=== PATIENT | male | born 1960 | race Caucasian/White ===

== ENCOUNTER 2025-08-30 16:54 | Inpatient (IN) | payer OTHER, SELFPAY ==
[2025-08-30 11:08] VITALS: BP 173/97
[2025-08-30 11:43] LABS: ALT (SGPT) 42 U/L (0-50); AST (SGOT) 41 U/L (17-59); Albumin 5.3 g/dl (3.5-5.0); Alkaline Phosphatase 74 U/L (38-126); Blood Urea Nitrogen 14 mg/dl (9-20); Calcium 9.8 mg/dl (8.4-10.2); Carbon Dioxide 26 mmol/L (22-30); Chloride 100 mmol/L (98-107); Glucose 91 mg/dl (70-99); Hematocrit 43.3 % (39.0-52.0); Hemoglobin 15.1 g/dL (13.0-18.0); Mean Corp Hgb Conc. 34.9 g/dL (33.0-37.0); Mean Corpuscular Volume 88.5 fL (80.0-94.0); Platelet Count 122 10^3/uL (130-400); Potassium 4.4 mmol/L (3.5-5.1); Red Cell Dist. Width 11.9 % (11.5-14.5); Sodium 133 mmol/L (135-145); Total Protein 7.7 g/dl (6.3-8.2); eGFR > 60.00
[2025-08-30 11:56] LABS: INR 1.04; PT 14.1 Sec (11.4-14.6)
[2025-08-30 12:05] LABS: Absolute Neutrophils -Man Diff 1.5 10^3/uL (1.4-6.5); Platelets Checked Yes
--- NOTE | 2025-08-30 12:05 | ED.CVA ---
History of Present Illness
<DAVID Roe - Last Filed: 08/30/25 19:17>
General
Chief Complaint: CVA/TIA Symptoms
Source: patient
Exam Limitations: none
Time Seen by Provider: 08/30/25 12:04
Nursing documentation reviewed up to this point in time: agreed with
Onset of Stroke Symptoms
Onset of symptoms known: No
Time pt last seen normal is known: No
History of Present Illness
History of Present Illness:
Patient is a 65-year-old male with history of hypertension hyperlipidemia cardiac stents TIA presents to the ER for evaluation. Patient reports yesterday at 6:30 PM he was sitting and' felt an aura, felt slight confusion' and then developed a
headache diplopia and felt weakness in both his arms. He thinks it lasted for about an hour. He was able to drive home and for little confused when he was driving home but symptoms did resolve. He has a history of CVA in the past.
Past History
<DAVID Roe - Last Filed: 08/30/25 19:17>
Past History
ED Past Medical History: HTN
ED Past Surgical History: Cardiac (Cardiac stents )
Social History
Tobacco: Non-smoker
Employment: Employed
Phy Exam
<DAVID Roe - Last Filed: 08/30/25 19:17>
General Physical Exam
General Presentation: no apparent distress
General age: appears stated age and appears older than age
General Skin: warm
General Habitus: normal
General Mental: alert
General Hydration: appears well hydrated
ENT Exam
ENT Exam: EOMI and neck supple
Eye Exam
Eye Exam: PERRL and EOMI
Eye Exam General: PERRL: bilateral and EOM intact: bilateral
Pupil Exam: Bilateral: round and reactive
Cardiovascular Exam
Cardiovascular Exam: regular rate/rhythm, no murmur and normal peripheral pulses
Pulmonary Exam
Pulmonary Exam: lungs clear and no respiratory distress
Neurological Exam
Neurological Exam: alert and oriented x3
NIH Stroke Score
Level of Consciousness: 0 - Alert
LOC questions: 0-Answers both correctly
LOC Commands: 0-Performs both correctly
Best Gaze: 0-Normal
Visual Dubose: 0=Normal, no visual loss
Facial palsy: 0=Normal, symmetrical
Motor - Right Arm: 0=No drift 10 seconds
Motor - Left Arm: 0=No drift 10 seconds
Motor - Right Le-No drift 5 seconds
Motor - Left Le-No drift 5 seconds
Limb Ataxia: 0-Absent
Sensation: 0-Normal
Best Language: 0-No aphasia
Dysarthria: 0-Normal
Extinction and Inattention: 0-No abnormality
Total Score:: 0
Marco A Coma Scale
Eye Opening: Spontaneous
Verbal Response: Oriented
Motor Response: Obeys Commands
GCS Total Score: 15
Cerebellar
Cerebellar Function: normal finger to nose
Musculoskeletal Exam
Musculoskeletal Exam: full ROM
Skin Exam
Skin Exam: normal color and warm/dry
Psychiatric Exam
Psychiatric Exam: normal mood/affect
Course
<DAVID Roe - Last Filed: 08/30/25 19:17>
Orders/Labs/Results
Orders:
Orders
08/30/25 11:17
Complete Blood Count/With Diff Urgent
Comprehensive Metabolic Panel Urgent
Manual Differential Urgent
PT/INR [Prothrombin Time] Urgent
08/30/25 12:16
Electrocardiogram (*1) Urgent
Reason for Study: Chest Pain
CT Head W/o Iv Contrast Urgent
Comment:
Reason For Exam: headache /had upper extremity weakness
Cardiac Monitoring- Treatment ONCE
EKG- Treatment ONCE
08/30/25 13:34
CT Head & Neck Angio W/wo IV Urgent
Comment:
Reason For Exam: TIA s/s/
08/30/25 16:44
Admit/Transfer Patient As Directed
Co-Sign Provider:
Level of Care: Inpatient admission
Assign to:: Telemetry
Physician / Group: Dhara
Diagnosis: CVA/TIA
Reason for Telemetry: CVA/TIA
Date to Stop Telemetry: 09/02/25
Time to Stop Telemetry: 11:00
Reason for Hospitalization: Above
Expected length of stay greater than two midnights?: Yes
ELOS- Estimated Length of Stay in days: 2
I certify the patient meets the requirements for IP care: Yes
PRN Pain Medication Management As Directed
May give lesser potent ordered pain med per pt: Yes
preference::
Protocol:: Medication orders for pain may be administered in a
manner that supports deferring to patient preference
when the pt is:
- Requesting an ordered lesser potent pain medication.
Least to most potent pain medications are defined
as: acetaminophen < NSAID < tramadol < opioids
(morphine, oxycodone, hydromorphone).
- Requesting a lesser dose of the same medication IF
ORDERED.
- Requesting a less intrusive route of administration
if both routes are prescribed by the provider (PO <
IV).
08/30/25 16:46
Code Status As Directed
Resuscitation Status: Full Code
08/30/25 18:16
Echo 2D MMode Color/Doppler Routine
Reason for Study: CVA
Case Management Consult ONCE
Case Management Consult: Discharge Planning
Comment: stroke/tia
DIETARY IP CONSULT Routine
Reason for Consult: stroke/TIA
NEUROLOGY CONSULT Urgent
Consulting Provider: Encarnacion,Adam
Was physician already notified: Yes
Commercial Loan Administrator Urgent
MR Brain Without Contrast Routine
Comment:
Reason For Exam: stroke/TIA
Recent pill cam endoscopy?: No
NIH Stroke Scale As Directed
Directions: Per protocol
Comment: every shift and with any change in condition or mental status
Ot Eval And Treat Routine
Pt Eval And Treat Routine
Activity Level: As Tolerated
Speech Therapy Eval & Treat Routine
DX Deep Vein Thrombosis Video Routine
08/30/25 19:00
Aspirin Chewable [Low Strength Aspirin] 81 mg PO DAILY
Enoxaparin Sodium [Lovenox] 40 mg SC QPM
Ezetimibe [Zetia] 10 mg PO Q48H
Rosuvastatin Calcium [Crestor] 40 mg PO QPM
08/30/25 20:00
omega-3 acid ethyl esters [Lovaza] See Dose Instructions PO BID
08/31/25 08:00
Amlodipine [Norvasc] 10 mg PO DAILY
Clopidogrel Bisulfate [Plavix] 75 mg PO DAILY
Thyroid [Wellington Thyroid] 60 mg PO DAILY
Zinc 50mg (Zinc Sulfate 220mg) [Zinc] 50 mg PO DAILY
azilsartan medoxomil [Edarbi] See Dose Instructions PO DAILY
09/02/25 11:00
DC Protocol for Telemetry ONCE
Abnormal Lab Results
08/30/25
11:17
WBC 3.5 L 10^3/uL
(4.8-10.8)
Plt Count 122 L 10^3/uL
(130-400)
Segmented Neutrophils 41 L %
(42-75)
Sodium 133 L mmol/L
(135-145)
Total Bilirubin 1.6 H mg/dl
(0.2-1.3)
Albumin 5.3 H g/dl
(3.5-5.0)
08/30/25 11:17
08/30/25 11:17
Vital Signs
Initial and Last Documented VS:
Initial Vital Signs
Temp Pulse Resp BP Pulse Ox
98.7 F 61 16 173/97 98
08/30/25 11:08 08/30/25 11:08 08/30/25 11:08 08/30/25 11:08 08/30/25 11:08
Last Documented Vital Signs
Temp Pulse Resp BP Pulse Ox
98.5 F 58 16 141/85 100
08/30/25 18:19 08/30/25 18:19 08/30/25 18:19 08/30/25 18:19 08/30/25 18:19
Dealer Sales Manager consulted with Physician
Dealer Sales Manager consulted with physician?: Yes
Name of Physician Consulted: Elsa
<Italia Arreola, DO - Last Filed: 08/30/25 13:59>
Orders/Labs/Results
Orders:
Orders
08/30/25 11:17
Complete Blood Count/With Diff Urgent
Comprehensive Metabolic Panel Urgent
Manual Differential Urgent
PT/INR [Prothrombin Time] Urgent
08/30/25 12:16
Electrocardiogram (*1) Urgent
Reason for Study: Chest Pain
CT Head W/o Iv Contrast Urgent
Comment:
Reason For Exam: headache /had upper extremity weakness
Cardiac Monitoring- Treatment ONCE
EKG- Treatment ONCE
08/30/25 13:34
CT Head & Neck Angio W/wo IV Urgent
Comment:
Reason For Exam: TIA s/s/
08/30/25 16:44
Admit/Transfer Patient As Directed
Co-Sign Provider:
Level of Care: Inpatient admission
Assign to:: Telemetry
Physician / Group: Dhara
Diagnosis: CVA/TIA
Reason for Telemetry: CVA/TIA
Date to Stop Telemetry: 09/02/25
Time to Stop Telemetry: 11:00
Reason for Hospitalization: Above
Expected length of stay greater than two midnights?: Yes
ELOS- Estimated Length of Stay in days: 2
I certify the patient meets the requirements for IP care: Yes
PRN Pain Medication Management As Directed
May give lesser potent ordered pain med per pt: Yes
preference::
Protocol:: Medication orders for pain may be administered in a
manner that supports deferring to patient preference
when the pt is:
- Requesting an ordered lesser potent pain medication.
Least to most potent pain medications are defined
as: acetaminophen < NSAID < tramadol < opioids
(morphine, oxycodone, hydromorphone).
- Requesting a lesser dose of the same medication IF
ORDERED.
- Requesting a less intrusive route of administration
if both routes are prescribed by the provider (PO <
IV).
08/30/25 16:46
Code Status As Directed
Resuscitation Status: Full Code
08/30/25 18:16
Echo 2D MMode Color/Doppler Routine
Reason for Study: CVA
Case Management Consult ONCE
Case Management Consult: Discharge Planning
Comment: stroke/tia
DIETARY IP CONSULT Routine
Reason for Consult: stroke/TIA
NEUROLOGY CONSULT Urgent
Consulting Provider: Adam Encarnacion
Was physician already notified: Yes
Commercial Loan Administrator Urgent
MR Brain Without Contrast Routine
Comment:
Reason For Exam: stroke/TIA
Recent pill cam endoscopy?: No
NIH Stroke Scale As Directed
Directions: Per protocol
Comment: every shift and with any change in condition or mental status
Ot Eval And Treat Routine
Pt Eval And Treat Routine
Activity Level: As Tolerated
Speech Therapy Eval & Treat Routine
DX Deep Vein Thrombosis Video Routine
08/30/25 19:00
Aspirin Chewable [Low Strength Aspirin] 81 mg PO DAILY
Enoxaparin Sodium [Lovenox] 40 mg SC QPM
Ezetimibe [Zetia] 10 mg PO Q48H
Rosuvastatin Calcium [Crestor] 40 mg PO QPM
08/30/25 20:00
omega-3 acid ethyl esters [Lovaza] See Dose Instructions PO BID
08/31/25 08:00
Amlodipine [Norvasc] 10 mg PO DAILY
Clopidogrel Bisulfate [Plavix] 75 mg PO DAILY
Thyroid [Wellington Thyroid] 60 mg PO DAILY
Zinc 50mg (Zinc Sulfate 220mg) [Zinc] 50 mg PO DAILY
azilsartan medoxomil [Edarbi] See Dose Instructions PO DAILY
09/02/25 11:00
DC Protocol for Telemetry ONCE
Abnormal Lab Results
08/30/25
11:17
WBC 3.5 L 10^3/uL
(4.8-10.8)
Plt Count 122 L 10^3/uL
(130-400)
Segmented Neutrophils 41 L %
(42-75)
Sodium 133 L mmol/L
(135-145)
Total Bilirubin 1.6 H mg/dl
(0.2-1.3)
Albumin 5.3 H g/dl
(3.5-5.0)
08/30/25 11:17
08/30/25 11:17
Vital Signs
Initial and Last Documented VS:
Initial Vital Signs
Temp Pulse Resp BP Pulse Ox
98.7 F 61 16 173/97 98
08/30/25 11:08 08/30/25 11:08 08/30/25 11:08 08/30/25 11:08 08/30/25 11:08
Last Documented Vital Signs
Temp Pulse Resp BP Pulse Ox
98.5 F 58 16 141/85 100
08/30/25 18:19 08/30/25 18:19 08/30/25 18:19 08/30/25 18:19 08/30/25 18:19
<DAVID Roe - Last Filed: 08/30/25 19:17>
MDM/Problems Addressed
Differential Diagnosis Includes:
Not limited to TIA, stroke
MDM/Problems Addressed:
As documented patient is a 65-year-old male with previous history of stroke cardiac stents hypertension hyperlipidemia presents to the ER for evaluation. Yesterday patient had diplopia headaches and felt bilateral upper extremity weakness. He is
asymptomatic today however presented to the ER for evaluation. Patient last admission for stroke was in January 2023 at that time his MRI did show a 5 mm acute nonhemorrhagic infarct in the medial aspect the left temporal lobe. He does take Plavix.
He is NIH score is currently 0. Case reviewed with Dr. Arreola as well as neuro DR Encarnacion. CTA head and neck ordered. will need MRI/echo. will adm for continue monitoring and evaluation and additional testing as patient has very high risk factors.
Chronic conditions affecting care:
Stroke, CAD stents
<DAVID Roe - Last Filed: 08/30/25 19:17>
*Radiology
Radiology exam reviewed: radiology read reviewed
*Pulse Oximetry
SaO2: 98
Oxygen Mode of Delivery: Room air
Patient hypoxic: no
*EKG
Interpreted by ED Provider?: Yes
Heart Rate: 52
Rate: bradycardiac
Rhythm: sinus
Ischemia: no ischemia
*Critical Care Note
Total Time (30-74mins, 75-104mins- exclusive of procedures): Not Applicable
ED Attending Note
<DAVID Roe - Last Filed: 08/30/25 19:17>
-
Portions of this chart may have been created with voice recognition software.� Occasional wrong word or��sound alike� substitutions may have occurred due to the inherent limitations of voice recognition software.
<Italia Davala, DO - Last Filed: 08/30/25 13:59>
ED Attending Note
Patient seen and examined by attending physician: Yes
I performed the substantive portion of visit, reviewed & personally made and approve the management plan that is documented in note by myself or DON.: Yes
I performed a history and physical exam of patient and discussed management with resident, I reviewed resident's note and agree with documented findings and plan of care.: Yes
ED Attending Note:
65-year-old male with prior history of TIA and CVA on Plavix presenting to the emergency department for concern of strokelike symptoms. Patient reports yesterday he had an episode of headache and double vision. Symptoms lasted about an hour to an
hour and a half. Symptoms have since improved, however still notes some residual headache. He feels globally weak. Vision has corrected. He did take aspirin today. Denies any present chest pain, difficulty breathing, abdominal pain. Vital
signs on arrival significant for mild hypertension.
On exam, patient is resting comfortably, no acute distress or discomfort. Patient initially seen and assessed by nurse practitioner with stroke workup initiated. CT brain obtained prior to my assessment, unremarkable. On my assessed, no present
focal neurologic deficits intact strength and sensation bilaterally. Patient awake, alert, oriented. Symptoms appear more consistent with TIA versus CVA. In discussion with neurology, recommending further workup including a CT angio, MRI, echo.
For this reason we will admit to the hospital for continued stroke workup. Patient agreeable to plan. Patient hemodynamically stable at this time.
Discharge Plan
Departure
Patient Disposition: Admit
Date of Disposition: 08/30/25
Time of Disposition: 13:46
Admit to: Med/Surg
Admit to doctor: hospitalist
Presentation/result/management discussed w/ accepting MD/DO: Hospitalist
Patient with high blood pressure during this ER visit?: No
Covid-19: Not Applicable
Discharge Problem:
TIA (transient ischemic attack)
Interventions
Interventions:
*Risk Screen - Suicide Last Done: 08/30/25 11:08
*General Assessment Last Done: 08/30/25 11:08
*Neglect/Abuse Screening Last Done: 08/30/25 11:08
*ED- Fall Risk Assessment Last Done: 08/30/25 11:08
*ED COVID-19 Vaccine History Last Done: 08/30/25 11:08
*ED Influenza Vaccine History Last Done: 08/30/25 11:08
*Nursing Disposition Last Done: 08/30/25 17:29
ED- Pulmonary Assessment Last Done: 08/30/25 13:45
ED- Neurological Assessment Last Done: 08/30/25 13:45
ED- Cardiac Assessment Last Done: 08/30/25 13:45
ED Swallowing Screen Last Done: 08/30/25 13:45
Discharge Date and Time
Discharge Date/Time: 08/30/25 18:05
[2025-08-30 12:06] LABS: Normal RBC Morphology Yes; Total Cells Counted 100
[2025-08-30 15:49] VITALS: BP 135/74
[2025-08-30 16:00] VITALS: BP 138/83
--- NOTE | 2025-08-30 16:52 | HPS.HSE ---
Family Physician
-
Family Physician: Edmond Jones
Chief Complaint
-
Episode of diplopia and generalized weakness.
History of Present Illness
Patient is a 65 years old male with history of CAD and PCI, prior CVA, dyslipidemia and hypertension who presents to the emergency room after self-limited episode of diplopia and bilateral upper extremity weakness. Patient describes being under
stress over the last few days with onset of diplopia, slight confusion, headache and weakness in both arms. All symptoms lasted for about an hour. Later that he was able to drive home from work with complete resolution of symptoms. Patient
recalls prior history of CVA at that time symptoms were more pronounced and and long-lasting. He denies any chest pain, palpitations, syncope or episodes of unconsciousness. He has no history of seizures or documented migraines.
On presentation to the emergency room patient is afebrile, nontoxic-appearing, hemodynamically stable.
Neurologic exam in the ED showed no focal symptoms.
Additional reassuring CT scan of the head showed no acute abnormalities. CTA of the head and neck showed no vascular occlusion or dissection.
Medical History
Past Medical History
Past Medical History: Reports CAD, Hypercholesterolemia and Hypothyroidism; Denies Arrhythmia or CHF
Past Surgical History: Reports None
Social History
Tobacco: Non-smoker
Alcohol: None
Drug: None
Personal:
Living: With Family
Employment: Employed
Family History
Family History: Not pertinent
Allergies / Home Medications
Allergies reflects when Allergies were last updated in [facility].
Home Medications with original date entered in [facility]
Allergy/Medication List:
Allergies
Allergy/AdvReac Type Severity Reaction Status Date / Time
No Known Allergies Allergy Verified 08/30/25 11:11
Home Medications
amlodipine 10 mg tablet (Norvasc) 10 mg PO DAILY Blood Pressure 08/30/25
ascorbic acid (vitamin C) 500 mg tablet (Vitamin C) 500 mg PO DAILY Supplement 08/30/25
aspirin 81 mg tablet,delayed release 324 mg PO DAILYPRN PRN mild pain 08/30/25
azilsartan medoxomil 80 mg tablet (Edarbi) 80 mg PO DAILY 08/30/25
clopidogrel 75 mg tablet 75 mg PO DAILY Blood Clot Prevention/Tx 08/30/25
ezetimibe 10 mg tablet (Zetia) 10 mg PO Q48H High Cholesterol 08/30/25
omega-3 acid ethyl esters 1 gram capsule (Lovaza) 2 cap PO BID Supplement 08/30/25
rosuvastatin 40 mg tablet (Crestor) 40 mg PO QPM High Cholesterol 08/30/25
thyroid 60 mg tablet 60 mg PO DAILY Thyroid 08/30/25
zinc sulfate 50 mg zinc (220 mg) capsule 50 mg PO DAILY Supplement 08/30/25
Review of Systems
-
A 12 point ROS was completed and negative except as noted: Yes
Respiratory: Reports No Symptoms
Cardiac: Reports No Symptoms
Abdomen/GI: Reports No Symptoms
: Reports No Symptoms
Neurological: Reports See HPI
Physical Exam
Vital Signs
Vital Signs
Temp Pulse Resp BP Pulse Ox
98.7 F 61 16 135/74 100
08/30/25 11:08 08/30/25 11:08 08/30/25 11:08 08/30/25 15:49 08/30/25 15:51
Physical Exam
General: Well Developed, Well Nourished and No Apparent Distress
HEENT: NormoCephalic, Moist mucous membranes and Atraumatic
Respiratory: Clear
Cardiac: S1/S2 and Regular Rhythm; No Murmur or Rub
GI: Soft, Non Tender, Non Distended and Normal Bowel Sounds; No Organomegaly
Rectal: Deferred by Provider
Musculoskeletal: No Clubbing, No Cyanosis and No Edema
Skin: No Rash
Neuro: Nonfocal/grossly intact
Laboratory Results
-
08/30/25 11:17
08/30/25 11:17
Laboratory Results
PT 14.1 Sec (11.4-14.6) 08/30/25 11:17
INR 1.04 08/30/25 11:17
Total Bilirubin 1.6 mg/dl (0.2-1.3) H 08/30/25 11:17
AST 41 U/L (17-59) 08/30/25 11:17
ALT 42 U/L (0-50) 08/30/25 11:17
Alkaline Phosphatase 74 U/L (38-126) 08/30/25 11:17
Impression/Plan
-
IMPRESSION:
Presentation with self-limited episode of diplopia, headache, bilateral upper extremity weakness.
Concern for TIA versus evolving CVA.
Conditions prior to admission:
Left frontal CVA 02/21 at that time MRI findings confirmed 5 mm acute nonhemorrhagic infarct in the medial aspect of the left temporal lobe
CAD with history of PCI double STEPHON to circumflex 2016
Dyslipidemia
Essential hypertension
Hypothyroidism on replacement
Chronic leukopenia
Chronic mild thrombocytopenia
History thiazide induced hyponatremia
PLAN:
Concern for TIA possibly evolving CVA.
Patient with history of ASCVD and prior CVA in 2022.
Transient episode of diplopia, bilateral upper extremity weakness day prior to presentation.
NIH stroke scale 0.
CT head with no acute abnormalities.
CTA head and neck with no vascular occlusion or dissection.
ECG sinus bradycardia at 52 without ischemia.
Admitted for close neurologic monitoring.
Neurology consultation.
Update lipid profile.
MRI of the brain
Echocardiogram
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
Continue DAPT
Continue high potency statin and ezetimibe
Goal normotension
ASCVD/CAD
Essential hypertension
Continue preadmission regimen including Edarbi
Monitor blood pressure trend
Hypothyroid on supplementation.
Update TSH
Chronic leukopenia and mild thrombocytopenia
Follow CBC
Check coagulation profile
Consider hematology evaluation as outpatient
Full code
DVT prophylaxis Lovenox
[2025-08-30 18:19] VITALS: BP 141/85; BMI 27.1
[2025-08-30] MEDS: LOVENOX 40 MG SC (19:42)
[2025-08-30] MEDS: CRESTOR 40 MG PO (19:42)
[2025-08-30] MEDS: LOW STRENGTH ASPIRIN 81 MG PO (19:43)
[2025-08-30] MEDS: ZETIA 10 MG PO (19:43)
[2025-08-30 19:58] VITALS: BP 139/81
[2025-08-30 23:00] VITALS: BP 128/77
[2025-08-31 03:50] VITALS: BP 105/62
[2025-08-31] MEDS: ZINC 50 MG PO (07:12)
[2025-08-31] MEDS: ARMOUR THYROID 60 MG PO (07:12)
[2025-08-31] MEDS: LOW STRENGTH ASPIRIN 81 MG PO (07:12)
[2025-08-31 07:39] LABS: APTT 31.5 Sec (23.4-35.0)
[2025-08-31 07:47] VITALS: BP 125/77
--- NOTE | 2025-08-31 08:22 | CON.NEURO4 ---
Addendum entered and electronically signed by Adam Encarnacion MD 08/31/25 18:46:
I have seen and examined the patient today along with the nurse practitioner Yola Mancera and I agree with her assessment and the management plan. The following is my addendum.
The patient is a 65 years old male who presented to the hospital on 08/30/2025 with report of transient diplopia along with weakness of both arms, that lasted for about an hour that started at around 6:30 PM on 08/30/2025. The patient says that he
has been under a lot of stress over the last few days. The patient says that he has returned back to his baseline at this time.
Neurologic examination.
The patient is alert and oriented x 3,
Speech is clear,
The cranial nerves II to XII grossly intact,
The strength is grossly 5/5 bilaterally in the upper and lower extremities,
The sensations are grossly intact,
The cerebellar examination does not show limb ataxia.
NIHSS = 0
The patient likely had a transient ischemic attack. The CT of the head did not show acute abnormality and the CTA of head and neck did not show large vessel occlusion or arterial dissection. The MRI of the brain did not show acute intracranial
abnormality. The patient was on Plavix at home. Will add aspirin to Plavix, and he will continue with rosuvastatin.
Discussed with Dr. Farzad Jules. The patient will follow-up with neurology in about 3 weeks.
Original Note:
Consultation - Neurology 4
-
CONSULTING PHYSICIAN: Adam Encarnacion MD
REFERRING PHYSICIAN: Hospitalists/Dr. Jules
DICTATED BY: DAVID Mcclain
DATE/TIME OF REQUEST: 08/30/25
DATE/TIME OF CONSULTATION: 08/31/25
Reason for Consultation: Transient diplopia, dizziness
History of Present Illness:
This is a 65-year-old male who has presented to the hospital on 08/30/25 with report of transient diplopia, confusion, dizziness, and headache. Patient was previously evaluated by our Neurology service in 2022 for similar symptoms, MRI brain at
that time demonstrated a small acute left temporal ischemic stroke. He completed 21 days of DAPT and then continued on clopidogrel 75mg daily since.
From previous evaluation by Neurology Dr. Guillen on 03/17/2023:
'63-year-old male presents as a follow-up for an acute ischemic stroke, likely hypertensive in etiology, for which she was treated at [facility] in late January 2023. He also has a history of hypertension, hyperlipidemia, osteoarthritis and
coronary artery disease status post stent placement and migraine with aura. He had blurred vision and diplopia followed by headache mostly on the left side lasting 30 to 45 minutes in duration and then returned to baseline. He also had some
confusion and disorientation which slowly subsided. This all happened around 12:30 PM on the day prior to being seen by neurology. In the past he had a similar event with visual changes followed by headache with neck discomfort. He was found to have
hyponatremia with a sodium of 127 and was altered so neutropenic. He had been started on Benicar for hypertension about 1 month prior. BP was 170/107 initially when he was admitted. Head CT showed no acute findings. MRI of the brain showed a 5 mm
acute nonhemorrhagic infarct in the medial aspect of the left temporal lobe. MRI of the [place] showed anatomic variation in the form of the A1 segment of the LACIE on the left being slightly smaller than the right. origin of the left
PLUM[employer]ING [employer]ATING [employer] was also seen. No significant stenosis was seen intracranially or on the MRA of the neck. He also had an echocardiogram. LV ejection fraction was found to be 68%. The interatrial septum was intact with no shunting. No clear family history of
stroke. He is a non-smoker. 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 He says that he exercises frequently and plays sports as he has done throughout his life. He has been unable to take a beta-herbert in the past as it resulted in bradycardia. He is actively following with
a protection agent and has our renal artery ultrasound scheduled coming up. He has been taking dual antiplatelet therapy in the form of aspirin 81 mg daily and Plavix 75 mg daily since his stroke. He has no clear residual deficits from his stroke. He
has had an increase in his anxiety regarding his health since being discharged. He is also noticed that he is more irritable at work and his blood pressure is more elevated at work than it is at home or when he is on vacation. He has been started on
Zoloft for anxiety and to see if this helps his blood pressure.'
Patient reports that two days ago on 08/29/25 around 1830 he started to feel mildly confused and dizzy, then proceeded to develop diplopia. He took a full dose aspirin and symptoms resolved after about one hour. The following morning (08/30/25) he
reports that he had a headache. CT head and CTA head/neck were obtained on arrival in the ER and were negative for any acute abnormalities. He was outside of the time window/no LVO for TNK/IAT. NIHSS was 0. Blood pressure on arrival was 173/97. He
does note significant stress in the past several weeks. Currently (08/31/25), he reports feeling at his baseline. He denies any headache, dizziness, vision changes, speech/swallowing difficulty, numbness, and focal weakness. He reports that since
the age of 46 about 2-3 times per year he has had episodes of headache associated with diplopia. He was previously told this might be migraine with aura. Since his stroke in 2022, he has not had any diplopia episodes until two days ago.
Past Medical History: Small left temporal ischemic stroke 01/2023, HTN, HLD, CAD, hypothyroidism, chronic leukopenia/mild thrombocytopenia, thiazide induced hyponatremia.
Surgical History: Cardiac stent x2, L knee arthroscopy
Family History: Reviewed and noncontributory.
Social History: Denies tobacco, alcohol, and illicit drug use.
Allergies: No known allergies.
Home Medications: See below.
Review of Symptoms:
Patient denies any fever, headache, chest pain, shortness of breath, GI or symptoms.
�Per the HPI.�All systems are reviewed negative except above.
Physical Exam:
The patient is afebrile, abdomen is nondistended, breathing is unlabored, skin is warm and dry, no edema.
NIH Stroke Scale:
I performed the NIH stroke scale on the patient on 08/31/25 at 1000. The patient scored 0 points on the NIH stroke scale assessment, which were assigned as follows: See below.
Neurologic Examination:
The patient is awake, alert and oriented x 3. He is able to follow commands and answer questions appropriately. There is no aphasia or dysarthria. On cranial nerve assessment, pupils are 3 mm bilateral, round and reactive to light and
accommodation. Visual dubose are full. Extraocular movements are intact. Facial sensations are intact and bilaterally symmetrical, there is no facial asymmetry. Hearing is intact bilaterally to normal conversation volume. Tongue palate and uvula are
midline. Sternocleidomastoid strengths are full bilaterally. Motor strengths are 5/5 bilateral upper and lower extremities on medical research Woden scale. There is no drift or involuntary movement noted. There was no extinction noted on double
simultaneous stimulation. Coordination is intact by finger to nose bilaterally.
Lab Results: See below.
Neuro Imaging:
1. CT Head 08/30/25 No acute intracranial abnormalities appreciated. No significant change compared to prior study.
2. CTA head/neck 08/30/25: No evidence of large vessel occlusion, or arterial dissection.
3. MRI Brain 08/30/25: No acute intracranial abnormality noted. Specifically, no evidence to suggest acute infarct. 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
white matter. Paranasal sinus mucosal disease.
Differentials for the patient's presentation include:
1. Transient diplopia, confusion, dizziness, and headache; MRI brain is negative for stroke. Etiology is possibly transient ischemic attack, hypertensive urgency, or migraine aura. Low concern for myasthenia producing diplopia as symptoms
typically occur with a headache and there is no ptosis.
Patient has the following risk factors for their symptoms: Hx diplopia for decades, HTN, hx stroke
IV Tenecteplase/IAT candidacy: He was outside of the time window/no LVO/low NIHSS for TNK/IAT.
Recommendations:
-Continue DAPT with aspirin 81mg and clopidogrel 75mg daily for 21 days.
-Goal normotension.
-Consideration for MRI brain w/ and w/o contrast imaging as an outpatient.
-TTE pending.
-LDL goal <70. LDL is pending. Continue home rosuvastatin 40mg and ezetimibe 10mg.
-Goal normoglycemia, hbA1c is pending.
-NIHSS and neurological checks per unit guidelines.
-Provide patient with a stroke education packet.
-DVT prophylaxis.
-Follow-up with Neurology as an outpatient.
Please contact our Neurology service with any questions/concerns.
Discussed patient care with: Dr. Encarnacion, the patient
Vital Signs and Labs
-
Vital Signs and Labs:
Vital Signs
Temp Pulse Resp BP Pulse Ox
97.4 F 51 16 125/77 97
08/31/25 07:47 08/31/25 07:47 08/31/25 07:47 08/31/25 07:47 08/31/25 07:47
Lab Results
08/30/25 11:17
08/30/25 11:17
PT Cancelled 08/30/25 18:16
INR Cancelled 08/30/25 18:16
APTT 31.5 Sec (23.4-35.0) 08/31/25 06:44
Sodium 133 mmol/L (135-145) L 08/30/25 11:17
Potassium 4.4 mmol/L (3.5-5.1) 08/30/25 11:17
BUN 14 mg/dl (9-20) 08/30/25 11:17
Glucose 91 mg/dl (70-99) 08/30/25 11:17
Calcium 9.8 mg/dl (8.4-10.2) 08/30/25 11:17
Medications
-
Active Medications
Generic Name Dose Route Start Last Admin
Trade Name Freq PRN Reason Stop Dose Admin
Amlodipine Besylate 10 mg 08/31/25 18:00
Amlodipine 10 Mg Tablet PO 09/28/25 17:59
QPM AMY
Aspirin 81 mg 08/30/25 19:00 08/31/25 07:12
Aspirin 81 Mg Chewable Tablet PO 09/27/25 18:59 81 mg
DAILY AMY Administration
Clopidogrel Bisulfate 75 mg 08/31/25 18:00
Clopidogrel 75 Mg Tablet PO 09/28/25 17:59
QPM AMY
Ezetimibe 10 mg 08/30/25 19:00 08/30/25 19:43
Ezetimibe (Zetia) 10 Mg Tablet PO 09/27/25 18:59 10 mg
Q48H AMY Administration
Enoxaparin Sodium 40 mg 08/30/25 19:00 08/30/25 19:42
Enoxaparin Sodium 40 Mg/0.4 Ml Syringe SC 09/27/25 18:59 40 mg
QPM AMY Administration
Azilsartan Medoxomil 0 mg 08/31/25 08:00
[Edarbi] 80 Mg PO 09/28/25 07:59
Tablet. Take One DAILY AMY
Tablet By Mouth
Daily
Paradox-3 Acid Ethyl 0 cap 08/30/25 20:00
Esters [Lovaza] 1 PO 09/27/25 19:59
Gram Capsule. Take BID AMY
Two Caps By Mouth
Twice A Day
Pantoprazole Sodium 20 mg 08/30/25 20:00 08/31/25 07:13
Pantoprazole 20 Mg Delayed Release Tablet PO 09/27/25 19:59 Not Given
DAILY AMY
Rosuvastatin Calcium 40 mg 08/30/25 19:00 08/30/25 19:42
Rosuvastatin (Crestor) 20 Mg Tablet PO 09/27/25 18:59 40 mg
QPM AMY Administration
Sodium Chloride 0 flush 08/30/25 19:00
Sodium Chloride 0.9% (Flush) Syringe IV 09/27/25 18:59
PER PROTOCOL AMY
Thyroid 60 mg 08/31/25 08:00 08/31/25 07:12
Thyroid 60 Mg (1 Grain) Tablet PO 09/28/25 07:59 60 mg
DAILY AMY Administration
Zinc 50 mg 08/31/25 08:00 08/31/25 07:12
Zinc 50 Mg (Zinc Sulfate 220 Mg) Capsule PO 09/28/25 07:59 50 mg
DAILY AMY Administration
Home Medications
�Medication �Instructions �Recorded
amlodipine 10 mg tablet (Norvasc) 10 mg PO QPM Blood Pressure 08/30/25
ascorbic acid (vitamin C) 500 mg 500 mg PO DAILY Supplement 08/30/25
tablet (Vitamin C)
aspirin 81 mg tablet,delayed 324 mg PO DAILYPRN PRN mild pain 08/30/25
release
azilsartan medoxomil 80 mg tablet 80 mg PO DAILY Blood Pressure 08/30/25
(Edarbi)
clopidogrel 75 mg tablet 75 mg PO QPM Blood Clot 08/30/25
Prevention/Tx
ezetimibe 10 mg tablet (Zetia) 10 mg PO Q48H High Cholesterol 08/30/25
omega-3 acid ethyl esters 1 gram 2 cap PO BID Supplement 08/30/25
capsule (Lovaza)
rosuvastatin 40 mg tablet (Crestor) 40 mg PO QPM High Cholesterol 08/30/25
thyroid 60 mg tablet 60 mg PO DAILY Thyroid 08/30/25
zinc sulfate 50 mg zinc (220 mg) 50 mg PO DAILY Supplement 08/30/25
capsule
NIH Stroke Score
Subsequent NIH Scale
Date of Subsequent NIH Scale: 08/31/25
Time of Subsequent NIH Scale: 10:00
NIH Stroke Score
Level of Consciousness: 0 - Alert
LOC Questions: 0-Answers both correctly
LOC Commands: 0-Performs both correctly
Best Horizontal Gaze: 0-Normal
Visual Dubose: 0=Normal, no visual loss
Facial Palsy: 0=Normal, symmetrical
Motor - Right Arm: 0=No drift 10 seconds
Motor - Left Arm: 0=No drift 10 seconds
Motor - Right Le-No drift 5 seconds
Motor - Left Le-No drift 5 seconds
Limb Ataxia: 0-Absent
Sensation: 0-Normal
Best Language: 0-No aphasia
Dysarthria: 0-Normal
Extinction and Inattention: 0-No abnormality
NIH Total Score:: 0
Modified [place] (mRS) Score
Modified Paty Scale (mRS): No symptoms
Score: 0
Alteplase Contraindication
Inclusion and Exclusion criteria reviewed: Yes
IAT Contraindications: NIHSS < 6
[2025-08-31 10:25] VITALS: BP 138/83; PULSE 65; O2SAT 99
[2025-08-31 10:43] VITALS: BP 138/83
--- NOTE | 2025-08-31 10:55 | W.DS.TRANS ---
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
-
Discharge Instructions:
Discharge Diagnosis/Procedures TIA
Diet Regular
Instructions:
Stand-Alone Forms:
Changes to Home Medications: No
Discharge Medications:
DC Medications w/original date entered in [employer]
amlodipine 10 mg tablet (Norvasc) 10 mg PO QPM Blood Pressure 08/30/25
ascorbic acid (vitamin C) 500 mg tablet (Vitamin C) 500 mg PO DAILY Supplement 08/30/25
azilsartan medoxomil 80 mg tablet (Edarbi) 80 mg PO DAILY Blood Pressure 08/30/25
clopidogrel 75 mg tablet 75 mg PO QPM Blood Clot Prevention/Tx 08/30/25
ezetimibe 10 mg tablet (Zetia) 10 mg PO Q48H High Cholesterol 08/30/25
omega-3 acid ethyl esters 1 gram capsule (Lovaza) 2 cap PO BID Supplement 08/30/25
rosuvastatin 40 mg tablet (Crestor) 40 mg PO QPM High Cholesterol 08/30/25
thyroid 60 mg tablet 60 mg PO DAILY Thyroid 08/30/25
zinc sulfate 50 mg zinc (220 mg) capsule 50 mg PO DAILY Supplement 08/30/25
aspirin 81 mg tablet,delayed release 81 mg PO DAILYPRN PRN mild pain #0 tabs 08/31/25
Home Medication Changes
Pending Results: No
[2025-08-31 11:30] VITALS: BP 116/75
[2025-08-31 12:26] LABS: Ferritin 178.0 ng/ml (17.9-464.0)
--- NOTE | 2025-08-31 12:32 | CM ---
Patient chart reviewed
discharged today
CM consult completed
PT/OT eval no needs
The patient resides with his significant other in a two story home with twelve steps to enter.
no DME/VN/SNF in the past.
pharmacy of choice is [facility]
plan: home, no needs
has transportation home
[2025-08-31 12:57] LABS: Folate 14.8 ng/ml (2.76-20); Vitamin B12 847 pg/ml (239-931)
--- NOTE | 2025-08-31 13:24 | PTOTSP ---
Patient demonstrates independence with functional mobility, elevations and ambulation without AD. Does not demonstrate further need for skilled therapy at this time and will be discharged. If needs change, please re-consult
[2025-08-31 14:36] LABS: HDL Cholesterol 58 mg/dl; LDL Cholesterol, Calculated 42 mg/dl; Very Low Density Lipoprotein 16 mg/dl (0-30)
[2025-09-01 08:42] LABS: Glycohemoglobin (HgbA1c) 5.0 % (4.0-5.9)
== END 2025-08-31 12:33 | disposition home or self-care (01) | DRG 69 ==
LOC: 3 WEST ACU 16:54
PROVIDERS: ADMITTING PHYSICIAN Internal Medicine; CONSULT PHYSICIAN Psychiatry & Neurology Neurology; EMERGENCY PHYSICIAN Student in an Organized Health Care Education/Training Program; FAMILY PHYSICIAN Family Medicine
DX: G45.9 Transient cerebral ischemic attack, unspecified (principal); E87.1 Hypo-osmolality and hyponatremia; I10 Essential (primary) hypertension; E03.9 Hypothyroidism, unspecified; D69.6 Thrombocytopenia, unspecified; I25.10 Atherosclerotic heart disease of native coronary artery without angina pectoris; R29.700 NIHSS score 0; D70.9 Neutropenia, unspecified; F41.9 Anxiety disorder, unspecified; Z79.02 Long term (current) use of antithrombotics/antiplatelets; Z79.82 Long term (current) use of aspirin
CPT/HCPCS: 70450; 70496; 70498; 70551; 80053; 80061; 82607; 82728; 82746; 83036; 84443; 85025; 85610; 85730; 93005; 93306; 97116; 97162; 97166; 99285; Q9967

== ENCOUNTER 2025-09-19 12:50 | Day surgery (SDC) | payer OTHER, SELFPAY ==
--- NOTE | 2025-09-19 14:18 | ITS.CL.IMPLP ---
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
Implant Loop
Procedure Report:
Primary Physician: Dr Edmond Jones
Primary Head Up Operator Helper: Dr Abelino Christy
Procedure Date: 09/19/2025
Procedure: Placement of a loop recorder.
History/Indication:
1. See office H&P for complete history.
2. Patient is a pleasant 65-year-old male with a past medical history significant for CAD with prior stenting, hypertension, dyslipidemia, prior stroke, unremarkable event monitor, and recent TIA. Patient presenting for elective ILR implant for
longitudinal surveillance for possible arrhythmic etiology to TIA/CVA.
Method:
After informed consent was obtained, the patient was brought to the EP laboratory holding area in a fasting, non-sedated state. Peripheral access was established. The left chest was prepared and draped in a sterile fashion. A 'time out' was
called. Local anesthesia was injected in the subcutaneous tissue. The ILR was injected under the skin. Topical skin adhesive was applied. Following the procedure, the patient was taken to the recovery area in stable condition. No complications
were noted.
Device Data:
Medtronic; Model# LINQII; Serial# [id number]
Conclusion:
Successful placement of a loop recorder.
Recommendations:
1. Follow-up will be arranged in the [facility] in 7-10 days for wound check.
2. Routine ILR care.
Grupo Candelaria DO, FAC, RS
Clinical Cardiac Founder President And Ceo
cc: Dr Edmond Jones; Dr Abelino Christy
== END 2025-09-19 14:35 | disposition home or self-care (01) ==
LOC: CATH 12:50
PROVIDERS: ATTENDING PHYSICIAN Internal Medicine Cardiovascular Disease; FAMILY PHYSICIAN Family Medicine; OTHER PHYSICIAN Internal Medicine Cardiovascular Disease
DX: Z09 Encounter for follow-up examination after completed treatment for conditions other than malignant neoplasm (principal); Z86.73 Personal history of transient ischemic attack (TIA), and cerebral infarction without residual deficits; Z79.899 Other long term (current) drug therapy; Z79.82 Long term (current) use of aspirin; Z79.02 Long term (current) use of antithrombotics/antiplatelets
CPT/HCPCS: 33285; C1764